=== PATIENT | male | born 1980 | race Caucasian/White ===

== ENCOUNTER 2023-07-13 19:54 | Outpatient (OUT) | payer MEDICARE, SELFPAY | END 2023-07-13 19:55 | disposition home or self-care (01) | LOC: SLEEP 19:55 | PROVIDERS: PCP Internal Medicine; Visit Provider Internal Medicine | DX: G47.33 Obstructive sleep apnea (adult) (pediatric) (principal) | CPT/HCPCS: 95810 ==

== ENCOUNTER 2023-08-22 20:00 | Outpatient (OUT) | payer MEDICARE, SELFPAY | END 2023-08-22 20:01 | disposition home or self-care (01) | LOC: SLEEP 08-23 07:26 | PROVIDERS: PCP Internal Medicine; Visit Provider Internal Medicine | DX: G47.33 Obstructive sleep apnea (adult) (pediatric) (principal) | CPT/HCPCS: 95811 ==